=== PATIENT | female | born 1990 | race Two or more races ===

== ENCOUNTER 2018-11-18 20:42 | Emergency (ER) | payer MEDICAID ==
[~2018-11-18] VITALS: Ht 162.6 cm; Wt 72.6 kg
--- NOTE | 2018-11-18 20:50 | NUR ---
PT WAS CALLED IN TO BE TRIAGED. PT IS NOT PRESENT IN WAITING ROOM.
[2018-11-18 20:56] VITALS: BP 141/90
--- NOTE | 2018-11-18 20:56 | NUR ---
ED Nurse Note: Pt arrived ED from home, c/o had a spider bite on right thigh which is redness for 2 days. Pt is A/O X4. VSS. waiting for orders.
[2018-11-18] MEDS ORDERED: BENADRYL25 MG ORAL (21:11)
--- NOTE | 2018-11-18 21:14 | Emergency Room Report ---
History of Present Illness General Chief Complaint: Animal Bite Source: Patient Present Illness HPI Patient presents with complaints of insect bite to the right upper thigh reports that yesterday the area was significantly more red It has now started to improve however she felt some itching Denies any discharge in eyes any fevers or chills Denies any spread of the erythema previously the incident initially occurred yesterday Denies any abdominal pain Allergies: Coded Allergies: No Known Allergies (Unverified , 11/18/18) Patient History Past Medical History: see triage record Pertinent Family History: none Last Menstrual Period: 10/31/18 Now: No Reviewed Nursing Documentation: PMH: Agreed; PSxH: Agreed Nursing Documentation-PMH Past Medical History: No Stated History Review of Systems All Other Systems: negative except mentioned in HPI Physical Exam Vital Signs Date Time Temp Pulse Resp B/P (MAP) Pulse Ox O2 Delivery O2 Flow Rate FiO2 11/18/18 20:50 98.8 114 16 141/90 (107) 97 Room Air Sp02 EP Interpretation: reviewed, normal General Appearance: well appearing, no apparent distress Head: normocephalic, atraumatic Eyes: bilateral eye PERRL, bilateral eye EOMI ENT: hearing grossly normal, normal pharynx Neck: supple Respiratory: no respiratory distress, no retraction, no accessory muscle use Cardiovascular #1: regular rate, rhythm Gastrointestinal: non tender, soft Musculoskeletal: normal inspection Neurologic: alert, oriented x3 Skin: other - Residual area approximately half by 2 cm, of what appears to be the insect bite and question, no obvious fluctuance no raised appearance Lymphatic: no adenopathy Medical Decision Making Diagnostic Impression: Primary Impression: insect bite ER Course Patient has a picture yesterday of the area which was fairly red and erythematous Today the area has significantly improved And the patient stable for close outpatient follow-up Last Vital Signs Date Time Temp Pulse Resp B/P (MAP) Pulse Ox O2 Delivery O2 Flow Rate FiO2 11/18/18 20:56 98.8 81 16 141/90 97 Room Air Status: improved Disposition: HOME, SELF-CARE Condition: Improved Scripts Diphenhydramine Hcl* (BENADRYL*) 25 Mg Capsule 25 MG ORAL Q6H PRN for Itching for 10 Days, CAP Prov: Dilip Chaves DO 11/18/18 Referrals: [facility] Departure Forms: Return to Work Return to Work in (Days): 1 Return to Work Date: Nov 19, 2018 Patient Instructions: Insect Bite, [id number] Additional Instructions: Patient is provided with the discharge instructions notified to follow up with primary doctor in the next 2-3 days otherwise return to the er with any worsening symptoms. Please note that this report is being documented using DRAGON technology. This can lead to erroneous entry secondary to incorrect interpretation by the dictating instrument. Dilip Chaves DO Nov 18, 2018 21:14
[2018-11-18 21:20] VITALS: BP 141/90
--- NOTE | 2018-11-18 21:20 | NUR ---
ER DISCHARGE NOTE: Patient is cleared to be discharged per Dr. Chaves. Pt is aox4 on room air with stable vital signs. Pt was given dc and prescription instructions and was able to verbalize understanding. Pt's ID band removed . Pt is able to ambulate with steady gait and took all belongings.
== END 2018-11-18 21:20 | disposition home or self-care (01) ==
LOC: EMR 20:52
DX: S70.361A Insect bite (nonvenomous), right thigh, initial encounter (principal); W57.XXXA Bitten or stung by nonvenomous insect and other nonvenomous arthropods, initial encounter; Y92.9 Unspecified place or not applicable
CPT/HCPCS: 99282